=== PATIENT | female | born 1955 | race Two or more races ===

== ENCOUNTER 2024-07-19 04:50 | Emergency (ER) | payer MEDICARE, MEDICAID, SELFPAY ==
[2024-07-19 04:55] VITALS: BP 149/94; PULSE 85; RESP 18; TEMP 36.6; O2SAT 96; BMI 32.8
--- NOTE | 2024-07-19 05:04 | EDRME_ITS ---
Rapid Medical Screening Exam [facility] Arrival date/time: 07/19/24 04:50 68F with history of psoriasis, HTN and hyperthyroidism presents to ED with 8 hours of worsening lip and facial swelling after eating some Fritos, which patient has had before. Patient also has some generalized itchiness. Patient does take lisinopril. Patient denies throat swelling and SOB for now. Chief Complaint: Allergic Reaction Vital signs: Vital Signs Temperature 97.8 F 07/19/24 04:55 Pulse Rate 85 07/19/24 04:55 Respiratory Rate 18 07/19/24 04:55 Blood Pressure 149/94 H 07/19/24 04:55 Pulse Oximetry (%) 96 07/19/24 04:55 Oxygen Delivery Method Room Air 07/19/24 04:55
[2024-07-19] MEDS: predniSONE 20 MG TABLET 40 MG PO (05:15)
[2024-07-19] MEDS: FAMOTIDINE 20 MG TABLET 40 MG PO (05:16)
[2024-07-19] MEDS: DEXAMETHASONE SOD PHOS INJ 10 MG/ML VIAL PO (05:17)
[2024-07-19 06:46] VITALS: BP 150/97; PULSE 61; RESP 18; TEMP 36.7; O2SAT 97
--- NOTE | 2024-07-19 07:04 | EDNOTE_ITS ---
ED General RME/HPI General Chief complaint: Allergic Reaction Stated complaint: ALLERGIC REACTION Time Seen by Provider: 07/19/24 06:22 Arrival date/time: 07/19/24 04:50 RME / HPI RME / HPI narrative: 07/19/24 04:50 RME: 68F with history of psoriasis, HTN and hyperthyroidism presents to ED with 8 hours of worsening lip and facial swelling after eating some Fritos, which patient has had before. Patient also has some generalized itchiness. Patient does take lisinopril. Patient denies throat swelling and SOB for now. RICKY HPI: 68-year-old female with history of hypertension on lisinopril, who presents with increasing lip swelling for the last several hours. She denies itchiness or pain of the swelling. She denies trauma to her lips or biting her lips she has chronic generalized itchiness due to her psoriasis but this has not changed. She denies swelling of the throat tongue or shortness of breath. Related Data Previous Rx's ?Medication ?Instructions ?Recorded prednisone 50 mg tablet 50 mg PO QDAY 3 days #3 tabs 07/19/24 Allergies Allergy/AdvReac Type Severity Reaction Status Date / Time No Known Allergies Allergy Verified 07/19/24 04:53 Review of Systems Review of Systems Systems Reviewed: All systems reviewed, normal except as documented ED Exam Narrative Physical exam: GENERAL APPEARANCE: AxOx4, generally well-appearing, no acute distress. HEENT: NC, AT. MMM. EOMI, clear conjunctiva, mild to moderate angioedema of the upper > lower lip. No swelling of the tongue, posterior pharynx, or uvula NECK: Supple without lymphadenopathy. No stiffness or restricted ROM. HEART: Normal rate and regular rhythm, normal S1/S1, no m/r/g LUNGS: CTAB, moving air well. No crackles or wheezes are heard. ABDOMEN: Soft, nontender, nondistended with good bowel sounds heard. NEUROLOGICAL: Grossly nonfocal. Alert and oriented, moving all 4 extremities. CN not formally tested but appear grossly intact. Observed to ambulate with normal gait. Skin: Warm and dry without any rash. Course Quality Measures none Orders Category Date Time Status Dexamethasone Inj [Decadron Inj] Med 07/19/24 05:04 Discontinued 10 mg PO X1 ONE Famotidine [Pepcid] Med 07/19/24 05:04 Discontinued 40 mg PO X1 ONE predniSONE Med 07/19/24 05:04 Discontinued 40 mg PO X1 ONE Reevaluation(s) Reevaluation #1: Patient was monitored in the emergency for 4 hours which exhibited mild improvement of the angioedema, it was not worsening and exhibits no airway compromise. Time: 09:30 Vital Signs Vital signs: Vital Signs Temperature 97.8 F 07/19/24 04:55 Pulse Rate 85 07/19/24 04:55 Respiratory Rate 18 07/19/24 04:55 Blood Pressure 149/94 H 07/19/24 04:55 Pulse Oximetry (%) 96 07/19/24 04:55 Oxygen Delivery Method Room Air 07/19/24 04:55 SpO2 96% on room air, not hypoxic MDM Patient data External records reviewed:: [facility] previous records Clinical information provided by:: patient Social determinants that could affect healthcare access:: none Patient has the following chronic illnesses:: Hypertension How is presenting disease/condition affected by chronic disease/condition?: uneffected by Evaluation data The following diagnostics were reviewed and interpreted by me:: other (specify) Lab and/or radiology exams considered but not ordered:: Testing indicated Interpretation Summary: Not applicable Medications Medications considered but not ordered:: Epinephrine Medication administrations:: Medication Administration History Discontinued Medications Dexamethasone Sodium Phosphate (Dexamethasone Sod Phos Inj 10 Mg/Ml Vial) 10 mg PO X1 ONE Stop: 07/19/24 05:05 Last Admin: 07/19/24 05:17 Dose: 10 mg Documented By: CVL Famotidine (Famotidine 20 Mg Tablet) 40 mg PO X1 ONE Stop: 07/19/24 05:05 Last Admin: 07/19/24 05:16 Dose: 40 mg Documented By: CVL Prednisone (Prednisone 20 Mg Tablet) 40 mg PO X1 ONE Stop: 07/19/24 05:05 Last Admin: 07/19/24 05:15 Dose: 40 mg Documented By: CVL above Consultations Consultation(s) initiated? (list below): No Diagnosis Differential Diagnosis ED Complaint MDM: Angioedema, urticaria, anaphylaxis, dental abscess, facial abscess Most likely diagnosis given after review of the tests above:: See below Admission Indicated Admission indicated?: not indicated Explain why admission is indicated or not indicated:: As per narrative Admission Request Was there a request for admission?: No Disposition Plan Disposition Plan: Discharge Discharge Attestation Discharge Attestation: The patient and all family members were given an opportunity to ask questions and understood the discharge instructions. Discharge instructions specifically effects, indications for sooner follow up or return to the emergency department, and the expected course of current diagnosis. Patient condition: Stable Medical Decision Making MDM Narrative MDM Narrative: Ms. Hardwick is otherwise clinically well-appearing with several hours of labial angioedema without oral involvement. She in fact already had exam the symptoms for nearly 8 hours at home and was monitored for additional 12 hours here in the emergency department. Symptoms have not worsened however they have only minimally improved. There is no lingular or posterior pharyngeal involvement, no airway compromise. She has been advised strictly to no longer take the lisinopril and to follow-up closely with her primary care physician both for reassessment of the angioedema and also for alternatives to her blood pressure management. Differential Diagnosis Differential Diagnosis: Angioedema, urticaria, anaphylaxis, dental abscess, facial abscess Discharge Plan Plan Patient Disposition: HOME (Self Care) Prescriptions/Referrals Prescriptions/Med Rec: New prednisone 50 mg tablet 50 mg PO QDAY 3 Days Qty: 3 0RF Referrals: Rajinder ([facility]),SHAYLA Sagastume [Primary Care Provider] - In 1 week Problem List Clinical Impression: Angioedema Patient/Caregiver Discharge Instructions Education Materials: ED Angioedema Additional Instructions: Deje de abiola lisinopril. Christi un seguimiento con ramírez m?dico de atenci?n primaria en 1 a 2 d?as para volver a controlarlo. Puede regresar al departamento de emergencias tim pronto merle los s?ntomas empeoren o si nota alg?n problema nuevo y preocupante. Print Language: Kiswahili Stand Alone Forms: Li Award Info., Patient Portal Info Letter
[2024-07-19 07:28] VITALS: BP 143/87; PULSE 58; RESP 16; TEMP 37.1; O2SAT 99
--- NOTE | 2024-07-19 07:31 | PC.NURSE ---
Report received from pm nurse, patient lying in gurmey quietly, no distress noted, however, patient to er with c/o allergic reaction, patient states it was after she ate doritos, which she has had in the past with no reaction. Currently patient noted to have swelling to lips and random areas throughout body is noted to have hives. Patient denies pain, denies feeling itchy after administration of medication from pm nurse, skin is warm dry and pink, resp. are even and non labor. Patient denies sob. call light within reach. Patient has no other needs at this time.
[2024-07-19 09:19] VITALS: BP 130/76; PULSE 62; RESP 16; TEMP 36.7; O2SAT 98
== END 2024-07-19 09:19 | disposition home or self-care (01) ==
PROVIDERS: Emergency Provider Emergency Medicine; PCP Physician Assistant
DX: T78.3XXA Angioneurotic edema, initial encounter (principal)
CPT/HCPCS: 99282; J1100; J7512; A9270

== ENCOUNTER → 2025-06-07 | Outpatient (CLI) | payer MEDICARE, MEDICAID, SELFPAY ==
--- NOTE | 2025-06-07 11:00 | XR_ITS ---
Examination: Screening digital mammography, bilateral Computer aided detection 3-D breast Tomosynthesis, bilateral Date and time of exam: June 07, 2025, 1030 hours, compared to mammograms dating to February 09, 2021 Indication: Screening Technique: Nonmagnified MLO, CC views of the breasts to been obtained, reconstructed from 3-D Tomosynthesis images. R2 computer aided detection program utilized for evaluation of suspicious masses and/or abnormal calcifications. 3-D Tomosynthesis images obtained. Findings: Scattered areas of fibroglandular density. Stable circumscribed nodule upper outer right breast anterior depth No interval suspicious masses Impression: BI-RADS category II: Benign Findings. Recommend 1 year follow-up mammogram.
== END | disposition home or self-care (01) ==
PROVIDERS: Referring Provider Nurse Practitioner Primary Care; Visit Provider Nurse Practitioner Primary Care
DX: Z12.31 Encounter for screening mammogram for malignant neoplasm of breast (principal); R92.323 Mammographic fibroglandular density, bilateral breasts
CPT/HCPCS: 77063; 77067

== ENCOUNTER → 2025-06-11 | Outpatient (CLI) | payer MEDICARE, MEDICAID, SELFPAY ==
--- NOTE | 2025-06-11 13:00 | XR_ITS ---
Examination: Breast ultrasound, unilateral, right complete Date and time of exam: June 11, 2025, 1322 hours INDICATIONS: Mammogram March 25, 2024 retroareolar nodule 4 mm Technique: Real-time markham scale ultrasonographic imaging performed right breast including all 4 quadrants as well as nipple retroareolar and axillary region. Findings: Axillary lymph nodes, no cystic or solid breast masses IMPRESSION: BI-RADS Category 2: Benign findings
== END | disposition home or self-care (01) ==
LOC: SDIM 13:07
PROVIDERS: PCP Nurse Practitioner Primary Care; Referring Provider Nurse Practitioner Primary Care; Visit Provider Nurse Practitioner Primary Care
DX: R92.321 Mammographic fibroglandular density, right breast (principal)
CPT/HCPCS: 76641